=== PATIENT | female | born 1975 | race Caucasian/White ===

== ENCOUNTER → 2017-09-19 | Day surgery (SDC) | payer OTHER ==
[~2017-09-19] VITALS: Ht 175.3 cm; Wt 147.4 kg
[~2017-09-19] MED LIST: ULTRAM50 M1 PO
--- NOTE | 2017-09-25 12:12 | Operative Report ---
Operative/Inv Procedure Report Surgery Date: 09/19/17 Name of Procedure: Laparoscopic cholecystectomy Pre-Operative Diagnosis: Symptomatic gall stones Post-Operative Diagnosis: Same Estimated Blood Loss: scant Surgeon/Wind Turbine Mechanic: Terry SIERRA,Adolfo KENT Anesthesia: general endotracheal tube Operative/Procedure Note Note: Patient was positioned supine. After successful induction of general anesthesia, the patient's abdomen was clipped, prepped and draped in the usual sterile fashion. Local anesthetic was injected at the top of the umbilicus and then a curved horizontal incision little over a centimeter was made there with a 15 blade and then deepened to the midline fascia which was incised vertically a little over a centimeter. Both sides were secured with 0 Vicryl stay sutures and then the thin peritoneal layer was entered, 10 mm Walton trocar inserted obliquely to the right, and the gas was turned on to 15 mm. After insufflation and repositioning to reverse Trendelenburg, 3 more dissecting 5 mm trochars were placed in the right subcostal area, first lateral, then mid-subcostal, then subxiphoid. The gallbladder fundus was grasped from the lateral port and retracted up over the edge of the liver and then we dissected out the area of the triangle of Calot while retracting the infundibulum caudally / laterally. First the cystic duct was identified, isolated at the neck, clipped 3 times, divided after the second clip and then in similar fashion the cystic artery was identified medially, dissected and divided. Then the gallbladder was from the liver bed using cautery then lowered into an Endobag and removed through the umbilical incision. The instruments and then the trochars were removed letting the gas escape. The fascial incision was closed with a figure 8 Vicryl then all 4 skin incisions were closed with interrupted subcuticular 4-0 Monocryl, followed by Mastisol Steri-Strips and Bandaids. Estimated blood loss was minimal, lap and sponge counts were correct, wound expectancy was clean- contaminated, IV fluids crystalloid, complications none, patient tolerated the procedure well and was returned to the recovery room in satisfactory condition.
== END ==
LOC: STS 02:42
DX: K80.10 Calculus of gallbladder with chronic cholecystitis without obstruction (principal); E66.01 Morbid (severe) obesity due to excess calories; Z68.42 Body mass index [BMI] 45.0-49.9, adult; Z87.891 Personal history of nicotine dependence; J45.909 Unspecified asthma, uncomplicated
CPT/HCPCS: 81025; 88304; J0131; J1100; J2250; J2405; J3490